=== PATIENT | female | born 1990 | race Caucasian/White ===

== ENCOUNTER → 2018-09-26 09:00 | Outpatient (CLI) | payer OTHER, SELFPAY ==
[2018-09-26 19:41] LABS: Chlamydia Trachomatis by PCR Negative (Negative); Neisserai gonorrhoeae by PCR Negative (Negative); Probe Check PASS; Sample Adequacy Control PASS; Specimen Processing Control PASS
[2018-09-29 08:36] LABS: HPV Reflexed? NOT INDICATED
== END ==
PROVIDERS: Referring Provider Obstetrics & Gynecology; Visit Provider Obstetrics & Gynecology
DX: Z12.4 Encounter for screening for malignant neoplasm of cervix (principal); Z11.3 Encounter for screening for infections with a predominantly sexual mode of transmission
CPT/HCPCS: 87491; 87591; 88175; G0145

== ENCOUNTER → 2018-10-24 09:55 | Outpatient (CLI) | payer OTHER, SELFPAY ==
[2018-10-24 11:08] LABS: Color, Urine Yellow (Yellow); Glucose, Dipstick Normal (Normal); Ketone-Dipstick Negative (Negative); Leukocyte Esterase-Dipstick Negative /ul (Negative); Nitrite-Dipstick Negative (Negative); Occult Blood-Urine Negative /ul (Negative); Protein-Dipstick Negative (Negative); Specific Gravity, Urine 1.015 (1.002-1.030); Urine Bilirubin Dipstick Negative (Negative); Urine Clarity Sl. Cloudy (Clear); Urine Urobilinogen Normal (Normal)
[2018-10-24 13:55] LABS: Absolute Lymphocyte Count 1.32 X10^3/ul (0.83-4.51); Absolute Neutrophil Count 9.6 X10^3/uL (2.0-7.7); Basophil# 0.05 X10^3/uL; Basophil% 0.4 % (0-1); Eosinophil# 0.15 X10^3/uL; Eosinophils% 1.3 % (0-5); Hematocrit 38.7 % (37-47); Lymphocyte # 1.32 X10^3/ul (4.0); Lymphocyte % 11.1 % (19-41); Mean Corp Hgb Conc 33.6 g/gl (32-36); Mean Corpuscular Volume 92.1 fL (81-99); Mean Platelet Vol. 9.6 fl (6.2-12.0); Monocyte# 0.68 X10^3/uL; Monocyte% 5.7 % (0-10); Neutrophil # 9.63 X10^3/uL (2.7-7.7); Neutrophil % 81.2 % (47-70); POSITIVE DIFFERENTIAL NO; Platelet Count 280 K/mm3 (150-450); RBC Distribution Width CV 12.3 % (11.6-14.6); RBC Distribution Width SD 40.8 fl (35.1-43.9); White Blood Count 11.9 K/mm3 (4.4-11.0)
[2018-10-24 13:56] LABS: POSITIVE COUNT NO; POSITIVE MORPHOLOGY NO
[2018-10-24 14:15] LABS: Thyroid Stim Hormone (TSH) 1.16 uIU/mL (0.358-3.74)
[2018-10-24 14:54] LABS: HIV - WCH Non-Reactive (Nonreactive); Rubella IgG 93.4 IU/mL
[2018-10-25 11:20] LABS: HEPATITIS B SURFACE AG Negative (Negative); Hep C Antibodies <0.1 s/co ratio (0.0-0.9)
[2018-10-26 23:53] LABS: Prenatal RPR NONREACTIVE (NONREACTIVE)
--- OUTSIDE RECORDS SUMMARY | 2019-01-25 17:10 | XMS RPT_ITS ---
:1990 Author Organization OHIP Care Team Providers Name Role Phone Kwaku Otero Admitting Unavailable Kwaku Otero Attending Unavailable Petty Monge Primary Care Unavailable Nu Pierre Attending Unavailable Primay Care Physicia, No Primary Care Unavailable Nu Pierre Attending Unavailable Nu Pierre Referring Unavailable Primay Care Physicia, No Primary Care Unavailable PROBLEMS PROBLEMS DATE TYPE CONDITION / CODE ATTENDING STATUS SOURCE 10/24/2018 Unknown Z34.81 - Encounter Nu Pierre Active [facility] for supervision of Community other normal Hospital , first Repository trimester / Z34.81(ICD-10) 09/26/2018 Unknown Z12.4 - Encounter Nu Pierre Active Kaya for screening for Community malignant neoplasm [facility] of cervix / Repository Z12.4(ICD-10) 09/26/2018 Unknown Z11.3 - Encounter Nu Pierre Active [facility] for screening for Community infections with a Hospital predominantly Repository sexual mode of transmission / Z11.3(ICD-10) PROCEDURES PROCEDURES No Procedure Records FoundRESULTS RESULTS URINALYSIS, ROUTINE Collected: 10/24/2018 Status: F Source: KAYA (DIPSTICK) 10:01 AM [facility] REPOSITORY Order Comment: How was Urine Obtained? Urine, Random TYPE CODE TESTS RESULT OUT OF RANGE REFERENCE UNITS LAB L400.3000 Yellow COLOR Normal Yellow LAB L400.3050 Clear Normal CLARITY Sl. Cloudy LAB L400.3200 Normal mg/dl Normal GLUCOSE, UR Normal LAB L400.3300 Negative mg/dL Normal BILIRUBIN URINE Negative LAB L400.3400 Negative mg/dl Normal KETONE UR Negative LAB L400.3465 1.002-1.030 Normal SP.GR. DIPSTX 1.015 LAB L400.3550 5.0 - 8.0 pH UR Normal 7.0 LAB L400.3600 Negative mg/dl PROT Normal DIPSTX Negative LAB L400.3700 Normal mg/dl Normal UROBILI Normal LAB L400.3750 Negative Normal NITRITE UR Negative LAB L400.3780 Negative /ul Normal OCCULT BLOOD-UR Negative LAB L400.3800 Negative /ul LEUK Normal ESTERASE Negative Performed By: #### L400.2011 #### [facility] [address] [place], [address] CBC W/DIFF, AUTOMATED Collected: 10/24/2018 Status: F Source: WEED 10:01 AM [facility] REPOSITORY TYPE CODE TESTS RESULT OUT OF RANGE REFERENCE UNITS LAB L100.1000 4.4-11.0 K/mm3 High WBC 11.9 LAB L100.1200 4.2-5.4 M/mm3 Normal RBC 4.20 LAB L100.1300 12.0-15.0 g/dl Normal HGB 13.0 LAB L100.1400 37-47 % Normal HCT 38.7 LAB L100.1500 81-99 fL Normal MCV 92.1 LAB L100.1600 27.0-32.0 pg Normal MCH 31.0 LAB L100.1700 32-36 g/gl Normal MCHC 33.6 LAB L100.1810 11.6-14.6 % Normal RDW CV 12.3 LAB L100.1820 35.1-43.9 fl Normal RDW SD 40.8 LAB L100.1900 150-450 K/mm3 Normal PLT 280 LAB L100.2000 6.2-12.0 fl Normal MPV 9.6 LAB L100.2100 47-70 % High NEUT% 81.2 LAB L100.2200 19-41 % Low LY% 11.1 LAB L100.2300 0-10 % Normal MONO% 5.7 LAB L100.2400 0-5 % Normal EO% 1.3 LAB L100.2500 0-1 % Normal BASO% 0.4 LAB L100.2550 0.0-0.9 % Normal IM GRAN % 0.300 Result Comment: IG% - Immature Granulocytes (promyelocytes, myelocytes and metamyelocytes) > 1% indicates that a LEFT SHIFT is Present. LAB L100.2620 2.0-7.7 X10 3/uL High Absolute Neut 9.6 LAB L100.2720 0.83-4.51 X10 3/ul Normal Absolute Lymph 1.32 Performed By: #### L100.0100 #### [facility] [address] [place], [address] THYROID STIM HORMONE Collected: 10/24/2018 Status: F Source: KAYA (TSH) 10:01 [facility] REPOS[facility] TYPE CODE TESTS RESULT OUT OF RANGE REFERENCE UNITS LAB L501.9520 0.358-3.74 uIU/mL Normal TSH 1.16 Performed By: #### L501.9520 #### [facility] [address] [place], [address] T AND S-NO Collected: 10/24/2018 Status: F Source: KAYA CHARGE W/PNP 10:01 [facility] REPOSITORY Order Comment: Reason for Type AND Screen/Red Cells: Surgery? N TYPE CODE TESTS RESULT OUT OF RANGE REFERENCE UNITS LAB B10.0800 AB Normal BLOOD POSITIVE TYPE GEL LAB B100.4050 Normal Ab SCREEN NEGATIVE GEL Performed By: #### B100.7550 #### [facility] [address] [place], [address] RUBELLA IGG Collected: 10/24/2018 Status: F Source: KAYA 10:01 AM [facility] REPOSITORY TYPE CODE TESTS RESULT OUT OF RANGE REFERENCE UNITS LAB L509.4000 IU/mL Normal Rubella IgG 93.4 Result Comment: Antibody results Interpretation of Immune Status < 5 IU/ml Presumed Non-immune 5 - < 10 IU/ml Equivocal > or = 10 IU/ml Presumed Immune Performed By: #### L509.4000, L3890.6005 #### [facility] [address] [place], [address] HIV - WCH Collected: 10/24/2018 Status: F Source: KAYA 10:01 AM [facility] REPOSITORY TYPE CODE TESTS RESULT OUT OF RANGE REFERENCE UNITS LAB L3890.6005 Nonreactive Normal HIV - [facility] Non-Reactive Performed By: #### L509.4000, L3890.6005 #### [facility] [address] [place], [place], [address] HEPATITIS B SURFACE Collected: 10/24/2018 Status: F Source: KAYA AG 10:01 AM [facility] REPOSITORY TYPE CODE TESTS RESULT OUT OF RANGE REFERENCE UNITS LAB L3100.0400 Negative Normal HB Negative SURF AG Result Comment: Performed at: [facility] [id number] Non Destructive Testing Technician: Navi Woodruff PhD, Phone: [phone] Performed By: #### L3100.0390, L3100.0625 #### [facility] (refer to report for specific site) refer to report for address and phone number HEPATITIS C ANTIBODIES Collected: 10/24/2018 Status: F Source: KAYA 10:01 AM [facility] REPOSITORY TYPE CODE TESTS RESULT OUT OF RANGE REFERENCE UNITS LAB L3100.0650 0.0-0.9 s/co ratio Normal HEP C AB <0.1 Result Comment: Negative: < 0.8 Indeterminate: 0.8 - 0.9 Positive: > 0.9 The CDC recommends that a positive HCV antibody result be followed up with a HCV Nucleic Acid Amplification test (259532). Performed By: #### L3100.0390, L3100.0625 #### [facility] (refer to report for specific site) refer to report for address and phone number RPR Collected: 10/24/2018 Status: F Source: KAYA 10:01 AM [facility] REPOSITORY TYPE CODE TESTS RESULT OUT OF REFERENCE UNITS RANGE LAB L700.5100 NONREACTIVE Normal RPR NONREACTIVE Performed By: #### L700.5100 #### [facility] [address] [place], [place], [address] CT/NG WCH BY PCR Collected: 09/26/2018 Status: F Source: WEED 9:00 AM [facility] REPOSITORY TYPE CODE TESTS RESULT OUT OF RANGE REFERENCE UNITS LAB L8200.2100 Negative Normal Chlam Negative Trac PCR LAB L8200.2200 Negative Normal NG by Negative PCR Performed By: #### L8200.1999 #### [facility] [address] [place], [address] PAP I-G W/RFX HRHPV Collected: 09/26/2018 Status: F Source: KAYA 9:00 AM [facility] REPOSITORY Order Comment: CYTOLOGY INFORMATION: - CLINICAL INFORMATION: - DATE LMP/MENOPAUSE: 07/25 LMP - COLLECTION VIAL: Thin Prep Vial - FRUIT OR NUT PICKER SOURCE: CERVICAL/ENDOCERVICAL - COLLECTION TECHNIQUE: BRUSH/SPATULA Specimen Comment: [id number] Specimen Comment: No. of containers..01 ThinPrep Vial TYPE CODE TESTS RESULT OUT OF RANGE REFERENCE UNITS LAB L7400.0800 . Normal DIAGN Comment Result Comment: NEGATIVE FOR INTRAEPITHELIAL LESION AND MALIGNANCY. LAB L7400.0900 . Normal ADEQ Comment Result Comment: Satisfactory for evaluation. Endocervical and/or squamous metaplastic cells (endocervical component) are present. LAB L7400.1400 . Normal PERFORM Comment Result Comment: Stacy Grant, Family Law Attorney (ASCP) LAB L7400.2575 . Normal TEST METHOD Comment Result Comment: This liquid based ThinPrep(R) pap test was screened with the use of an image guided system. LAB L7400.2600 . Normal . COMM LAB L7400.2700 . Normal PAPSMR Comment Result Comment: The Pap smear is a screening test designed to aid in the detection of premalignant and malignant conditions of the uterine cervix. It is not a diagnostic procedure and should not be used as the sole means of detecting cervical cancer. Both false-positive and false-negative reports do occur. LAB L7400.2800 . Normal HPV RFLX Comment Result Comment: The HPV DNA reflex criteria were not met with this specimen result therefore, no HPV testing was performed. Performed at: [address] [id number] Non Destructive Testing Technician: Anat Claros MD, Phone: [phone] Performed By: #### L7400.0350 #### [facility] (refer to report for specific site) refer to report for address and phone number ALLERGIES ALLERGIES DATE TYPE / CODE NAME / CODE REACTION SEVERITY SOURCE 06/03/2014 Drug No Known Unknown Kaya [facility] Allergy/4160 Allergies/F00 [facility] [address](SNOMED [id number](RXNOR Repository CT) M) ENCOUNTERS ENCOUNTERS ADMIT/DISCHARGE ACCOUNT NUMBER ADMITTING ENCOUNTER LOCATION SOURCE CLASS 11/14/2018/11/14/19 [id number] Shanna, Vandana [address] ding:AshFamP Repository racRoom: Room 3 10/24/2018 [id number] [facility] ding:WOBLAB Repository 09/26/2018 [id number] [facility] ding:LABSPEC Repository PAYERS PAYERS ENCOUNTER GUARANTOR PAYER SUBSCRIBER SOURCE 10/24/2018 FLACO A Primary FLACO A [facility] [id number] Insurance:MEDICAL LOGANDOB: [facility] [id number] Number: Repository [id number]: [phone] [id number] [phone] (HP) Date:[id number] [address] [place] [phone]: 10/24/2018 Secondary NOT GIVENUNK Kaya Insurance:SELF PAY [facility] Number: Effective Repository Date:2018-10-24 09/26/2018 FLACO A Primary FLACO A Kaya [id number] Insurance:MEDICAL LOGANDOB: [facility] [id number] Number: Repository [id number]: [phone] [id number] [phone] (HP) Date:[id number] [address] [place] [phone]: 09/26/2018 Secondary NOT GIVENUNK [facility] Insurance:SELF PAY [facility] Number: Effective Repository Date:2018-09-26
== END ==
PROVIDERS: Visit Provider Obstetrics & Gynecology
DX: Z34.81 Encounter for supervision of other normal pregnancy, first trimester (principal)
CPT/HCPCS: 36415; 81002; 84443; 85025; 86703; 86762; 86803; 87340

== ENCOUNTER → 2019-02-06 08:27 | Outpatient (CLI) | payer OTHER, SELFPAY ==
[2019-02-06 11:00] LABS: Hematocrit 35.2 % (37-47); Hemoglobin 11.7 g/dl (12.0-15.0); Mean Corp Hgb Conc 33.2 g/gl (32-36); Mean Corpuscular Hgb 31.5 pg (27.0-32.0); Mean Corpuscular Volume 94.9 fL (81-99); Mean Platelet Vol. 9.9 fl (6.2-12.0); Platelet Count 236 K/mm3 (150-450); RBC Distribution Width CV 12.7 % (11.6-14.6); RBC Distribution Width SD 43.4 fl (35.1-43.9); Red Blood Count 3.71 M/mm3 (4.2-5.4); White Blood Count 8.6 K/mm3 (4.4-11.0)
[2019-02-06 11:01] LABS: Scan Indicated on CBC? Y/N NO
[2019-02-06 11:06] LABS: Glucose Challenge Gest 1H 50g 54 mg/dL (70-140)
== END ==
PROVIDERS: Visit Provider Obstetrics & Gynecology
DX: Z34.83 Encounter for supervision of other normal pregnancy, third trimester (principal)
CPT/HCPCS: 36415; 82950; 85027

== ENCOUNTER → 2019-04-03 16:45 | Outpatient (CLI) | payer OTHER, SELFPAY | PROVIDERS: Visit Provider Obstetrics & Gynecology | DX: Z36.85 Encounter for antenatal screening for Streptococcus B (principal) | CPT/HCPCS: 87081 ==

== ENCOUNTER 2019-05-08 06:55 | Inpatient (IN) | payer OTHER, SELFPAY ==
--- NOTE | 2019-05-08 07:10 | PCM.HPOB.BLA ---
History and Physical Date of Admission: 05/08/19 OB HISTORY AND PHYSICAL EXAMINATION History of this : 29 yo female Ab0 with EDC 05/01/2019 by 13 weeks 0 days Ultrasound, presents to Labor and Delivery for induction of labor postdates. H/O prior C/S of twins. Plans . Hoping for intermittent EFM but with pitocin and induction, will need continuous monitoring. Not feeling UCs. care remarkable for : AB positive. GBS negative. RI. 1.) GAVE BREAST PUMP RX , 2.) Saline Lock in labor. 3.) H/O C section for twin IUP , plans . Postdates induction today. Pertinent Past Medical History: negative. Allergies: NKA Medications: During - Bactrim 400 mg-80 mg tablet;; DHA+Complete 305-300 mg-mcg-mg combo pack Review of Systems: Non-contributory PHYSICAL EXAMINATION General Appearance: 29 yo female in no acute distress Vital Signs: AF, VSS Heart: RRR without rubs or gallops Lungs: resp rate regular Breasts: deferred Abdomen: gravid Pelvis: adequate Cervix: 2/50/-2 mod consistency, midposition. AROM clear fluid with scant bloody show Presentation: cephalic Size: AGA Movement: present Heart: 120s avg variability Accels. No regular UCs noted. Impression /Plan: Intrauterine . 41 wk for induction of labor. with h/o prior C/S for twins. AROM and Pitocin planned. Watch progress, tolerance of labor. See Progress Notes for Changes: Physician's Signature: Date: FLACO GIBSON [id number] REV. 06/10
[2019-05-08] MEDS: Lactated Ringers 1,000 ML 50 ML IV ×2 (07:30→13:16)
[2019-05-08 07:32] VITALS: BMI 27.8
[2019-05-08 08:03] LABS: Absolute Lymphocyte Count 1.31 X10^3/ul (0.83-4.51); Absolute Neutrophil Count 5.1 X10^3/uL (2.0-7.7); Basophil# 0.03 X10^3/uL; Basophil% 0.4 % (0-1); Eosinophil# 0.11 X10^3/uL; Eosinophils% 1.5 % (0-5); Hematocrit 36.5 % (37-47); Hemoglobin 12.3 g/dl (12.0-15.0); Lymphocyte # 1.31 X10^3/ul (4.0); Lymphocyte % 17.9 % (19-41); Mean Corp Hgb Conc 33.7 g/gl (32-36); Mean Corpuscular Hgb 31.7 pg (27.0-32.0); Mean Corpuscular Volume 94.1 fL (81-99); Mean Platelet Vol. 10.2 fl (6.2-12.0); Monocyte% 9.6 % (0-10); Neutrophil # 5.13 X10^3/uL (2.7-7.7); Neutrophil % 70.3 % (47-70); Platelet Count 207 K/mm3 (150-450); RBC Distribution Width CV 12.7 % (11.6-14.6); RBC Distribution Width SD 43.7 fl (35.1-43.9); Red Blood Count 3.88 M/mm3 (4.2-5.4); White Blood Count 7.3 K/mm3 (4.4-11.0)
[2019-05-08 08:07] LABS: POSITIVE COUNT NO; POSITIVE DIFFERENTIAL NO; POSITIVE MORPHOLOGY NO
[2019-05-08] MEDS: Oxytocin 30 units/NS 500 ml 30 UNITS/500 ML IV.SOLN IV (08:13)
[2019-05-08] MEDS: fentaNYL-bupivacaine (epidural) 100 ML BAG EPIDURAL (13:47)
--- NOTE | 2019-05-08 13:58 | NURSING ---
cyndee adame was called after first line not answering. she states she will let dr mahmood know. did not hear from her so called [phone] at [phone] horan answered and made aware of situation.
[2019-05-08] MEDS: Oxytocin 30 units/NS 500 ml 30 UNITS/500 ML IV.SOLN 334 UNITS IV (15:57)
[2019-05-08] MEDS: Oxytocin 30 units/NS 500 ml 30 UNITS/500 ML IV.SOLN 167 UNITS IV (16:30)
[2019-05-08] MEDS: 0.9% Saline Lock 10 ML Syringe IV (17:51)
--- NOTE | 2019-05-08 19:13 | DCINST_ITS ---
Discharge Diet: No Restrictions Discharge Activity: May Shower, May Take a Tub Bath May resume sexual activity in: 4-6 weeks Additional Activity Instructions:: Nothing in the vagina for 4-6 weeks. You may return to work/school in 6 weeks. Additional Instructions: If you experience any of the following, contact your healthcare provider. * Bleeding that soaks a pad every hour for 2 hours * Fever 100.4 or higher * Unrelieved abdominal pain * Problems urinating (including inability to urinate or burning while urinating). * Visual changes * Severe headache * Flu-like symptoms * Pain or redness in one of both of your breasts * Pain, warmth, tenderness or swelling in your legs, especially the calf area * Frequent nausea and vomiting * Symptoms of depression or anxiety If you experience any of the following, call 911 or go to the nearest Emergency Room. * Chest pain * Problems breathing * Seizure activity * Partial or complete paralysis of a body part, slurred speech, weakness or drooping of the face, or a sudden inability to walk or hold your balance Allergies/Adverse Reactions: Allergies No Known Allergies Allergy (Verified 05/08/19 07:32) Medications to take at Discharge Vits [Prenatabs FA ] 1 tablet PO DAILY 06/03/14 Docusate Sodium [Colace] 100 mg PO BID #60 cap 05/08/19 Polyethylene Glycol 3350 [Miralax] 17 gm PO DAILY 30 Days #30 packet 05/08/19 The following prescriptions were given: Docusate Sodium [Colace] 100 mg PO BID #60 cap Prescription Printed Polyethylene Glycol 3350 [Miralax] 17 gm PO DAILY 30 Days #30 packet Prescription Printed Please Follow Up With: Nu Pierre MD - [phone] When: Call to make an appointment with your doctor in 6 weeks. If you had a 4th degree laceration you will need to be seen in 2 weeks. Primary Care Physician: Care Physician,No Primary [Primary Care Provider] - Test Results: Test results from this visit will be discussed in further detail at your follow- up appointment, if applicable. Proposed Discharge Date: 05/10/19
--- NOTE | 2019-05-08 19:17 | OP.PCM_ITS ---
Vaginal Delivery Maternal Presentation: Medically Indicated Induction 41 wk postdates induction. Method of Induction: Pitocin, Amniotomy Amniotic Membrane Rupture Type: Artificial Amniotic Fluid Description: Clear Final LYLY: 05/01/19 Gestational age: 41 Weeks and 0 Days Date of Procedure: 05/08/19 Pre-Operative Diagnosis: 41 wk induction Post-Operative Diagnosis: Same Surgery/ Procedure Performed: Spontaneous Vaginal Delivery Type of Anesthesia: Epidural Description of Procedure: Of a hill viable female over intact perineum to fourth degree laceration with final forceful push. Hale catheter in place. epidural in place. head delivered ERASMO. OP and nares bulb suctioned after shoulders delivered. Infant to maternal abdomen. Began to assess laceration -- 4th degree noted. Delayed cord clamping. Cord clamped times two and cut. Baby with Ap 8/9 No cord gas or cord blood collected. PP exam; 4th deg laceration repaired in layers under epidural anesthesia to hemostatic and intact. Initial layer reapproximating rectal mucosa, running 3- 0 Vicryl. Rectal sphincter capsule reapproximated with interrupted 2-0 chromic suture. Remained of vaginal laceration and perineal laceration repaired with 2- 0 Vicryl Placenta delivered by expression, expulsion normal appearing, intact with trailing membranes. 3V cord. EBL 400 cc Rectovaginal exam performed and repair intact and hemostatic. Pt and infant tolerated delivery well. To recovery, stable condition. Presentation: Vertex, ERASMO Placental Delivery Description: Spontaneous, Expressed Placenta Disposition: [facility] Cord Vessel Description: 3 Vessels Cord Entanglement: None Drain: Hale to straight drain A gender: Female (1 minute): 8 (5 minute): 9 Episiotomy Description: None Laceration: Vaginal Extension/lac, 4th Degree Medications given after delivery: IV Pitocin Complications: None
[2019-05-08 20:50] VITALS: BP 119/76; PULSE 74; RESP 18; TEMP 36.3
[2019-05-08] MEDS: Docusate Sodium 100 MG Capsule PO (20:57)
[2019-05-08] MEDS: Ibuprofen 600 MG Tablet PO (21:14)
[2019-05-08 23:25] VITALS: BP 109/64; PULSE 68; RESP 18; TEMP 36.2
[2019-05-09 04:18] VITALS: BP 114/59; PULSE 62; RESP 18; TEMP 36
[2019-05-09] MEDS: Ibuprofen 600 MG Tablet PO ×3 (04:29→17:46)
--- NOTE | 2019-05-09 08:16 | PCM.PN.OB ---
Subjective: PPD#1 41 wk induction with 4th degree Doing well. Concerned re bowel movements. Pain control adequate with Ibuprofen. No concerns otherwise. - Physical Exam General: Alert, Oriented x3, Cooperative, No apparent distress HEENT: Atraumatic Neck: Supple Abdomen: Soft - Fundus firm NT at 2 cm inferior to umbilicus. Minimal lochia on pad. Neurological: Cranial nerves II-XII grossly intact Psych/Mental Status: Normal Affect Vital Signs Temp Pulse Resp BP 96.8 F L 62 18 114/59 L 05/09/19 04:18 05/09/19 04:18 05/09/19 04:18 05/09/19 04:18 Oxygen Delivery Method Room Air Weight: 78.1 kg Body Mass Index (BMI) 27.8 Intake and Output for Last 24 Hours 05/07/19 05/08/19 05/09/19 23:59 23:59 23:59 Intake Total 3222 / 3222 Output Total 3150 / 3150 Balance 72 / 72 Laboratory Tests Past 24 Hrs 05/08/19 07:30 Blood Type AB POSITIVE Antibody Screen NEGATIVE Medical Necessity - Tobacco Use Smoking Status: Never smoker Assessment/Plan PPD#1 41 wk induction. 4th degree laceration. Stable pp. Continue routine care. Stool softeners for at least two weeks to keep BM soft (Colace bid, Miralax, and prn MOM) Potential dischg LATE this pm. Will notify nursing staff if decides to go home today.
[2019-05-09 09:30] VITALS: BP 101/56; PULSE 73; RESP 16; TEMP 36.3; O2SAT 97
[2019-05-09] MEDS: Polyethylene Glycol 3350 17 GM PACKET PO (10:54)
[2019-05-09] MEDS: Docusate Sodium 100 MG Capsule PO ×2 (10:54→22:00)
[2019-05-09 11:23] VITALS: BP 122/78; PULSE 56; RESP 16; TEMP 36.3; O2SAT 98
[2019-05-09 16:00] VITALS: BP 110/70; PULSE 72; RESP 16; TEMP 36.2; O2SAT 100
[2019-05-09 20:20] VITALS: BP 117/69; PULSE 67; RESP 16; TEMP 36.2
[2019-05-10] MEDS: Ibuprofen 600 MG Tablet PO ×2 (01:51→10:00)
[2019-05-10 01:58] VITALS: BP 116/77; PULSE 59; RESP 18; TEMP 36.3
[2019-05-10 08:00] VITALS: BP 115/76; PULSE 59; RESP 16; TEMP 36.4; O2SAT 99
[2019-05-10] MEDS: Docusate Sodium 100 MG Capsule PO (10:01)
[2019-05-10] MEDS: Polyethylene Glycol 3350 17 GM PACKET PO (10:01)
--- NOTE | 2019-05-10 10:09 | PCM.PN.OB ---
Subjective: Patient without complaints. Breast-feeding going well. Ready to go home today. - Physical Exam Vital Signs Temp Pulse Resp BP Pulse Ox 97.3 F L 59 L 18 116/77 100 05/10/19 01:58 05/10/19 01:58 05/10/19 01:58 05/10/19 01:58 05/09/19 16:00 Oxygen Delivery Method Room Air Weight: 172 lb 2.896 oz Body Mass Index (BMI) 27.8 Intake and Output for Last 24 Hours 05/08/19 05/09/19 05/10/19 23:59 23:59 23:59 Intake Total 3222 / 3222 Output Total 3150 / 3150 Balance 72 / 72 Medical Necessity - Tobacco Use Smoking Status: Never smoker Assessment/Plan Doing well day #2 status post with fourth degree laceration. Will release to home with routine instructions. Follow-up in 2 weeks and 6 weeks.
[2019-05-10 12:00] VITALS: BP 108/70; PULSE 62; RESP 16; TEMP 36.7
== END 2019-05-10 12:00 | disposition home or self-care (01) | DRG 768 ==
PROVIDERS: Admitting Provider Obstetrics & Gynecology; Referring Provider Obstetrics & Gynecology; Visit Provider Obstetrics & Gynecology
DX: O34.219 Maternal care for unspecified type scar from previous cesarean delivery (principal); Z37.0 Single live birth; O70.3 Fourth degree perineal laceration during delivery; O48.0 Post-term pregnancy; Z3A.41 41 weeks gestation of pregnancy
CPT/HCPCS: 59025; 59050; 85025; 86850; 86900; 99218; J7120; A4216; G0378